=== PATIENT | male | born 1960 | race Caucasian/White ===

== ENCOUNTER → 2017-05-18 | Outpatient (CLI) | payer MEDICARE, MEDICAID ==
[~2017-05-18] VITALS: Ht 182.9 cm; Wt 132.4 kg
[~2017-05-18] MED LIST: ALFU10TA6 PO; ALPR1T PO; AMIT25TA9 PO; AMIT50TA3 PO; ASP81TEC PO; CA C1TAB26 PO; CATHETER FLUSH 10 ML SYR IV PRN; CYCL10TA9 PO; DARI7.5T8 PO; DEXL60CA PO; DILT240C PO; FENO145T2 PO; FESO8TAB PO; FURO40TA4 PO; GABA-488 PO; GLYB5TAB6 PO; HYDR1TAB86 PO; INSASP10V SQ; INSU100C7 SQ; INSU100I29 SQ; LANS30CA PO; LISI5TAB PO; LORA10CA PO; METF-380 PO; POTA10CA43 PO; REGADENOSON 0.4 MG/5 ML SYR (LEXISCAN) IV ONE; SIMV20TA3 PO; TIZA4TAB3 PO; TROS60CA2 PO; VENL75TA74 PO; VITA10007 PO
[2017-05-18 09:03] VITALS: BP 112/90
--- NOTE | 2017-05-19 08:07 | STRESS TEST ---
DATE OF SERVICE: 05/18/2017 PROCEDURE: Resting and post regadenoson technetium-99m Tetrofosmin SPECT CT imaging. ORDERING PHYSICIAN: Dr. Reynaga. PRIMARY PHYSICIAN: Dr. Pacheco. CLINICAL DIAGNOSIS: Coronary artery disease. DESCRIPTION: Baseline images were carried out after injection of 10.57 mCi of technetium-99m Tetrofosmin. This was followed by 0.4 mg regadenoson and 30.3 mCi of technetium-99m Tetrofosmin for stress imaging. The electrocardiogram showed sinus rhythm with sinus arrhythmia at baseline. The electrocardiogram did not change significantly with the regadenoson infusion. Overall, he tolerated the procedure well. Review of images at rest and following stress indicates a small predominantly transient basal inferior perfusion defect. Gated images show normal global left ventricular systolic function with normal regional wall motion. Left ventricular ejection fraction is calculated to be 56%. Left ventricular end diastolic volume is 78 mL. TID is absent (1). CONCLUSIONS: 1. This study is indicative of a small amount of basal inferior ischemia. 2. Normal regional wall motion. 3. Normal global left ventricular systolic function with a calculated ejection fraction of 56%. Job ID: [id number] DocumentID: [id number] Dictated Date: 05/18/2017 17:06:52 Reference Assistant Date: 05/19/2017 02:21:52 Dictated By: LISA REYNAGA MD, MA, FACP, FACC,
== END ==
LOC: CARD 07:16
PROVIDERS: ATTEND Internal Medicine Cardiovascular Disease
DX: I25.10 Atherosclerotic heart disease of native coronary artery without angina pectoris (principal); E11.9 Type 2 diabetes mellitus without complications; J43.8 Other emphysema; K76.0 Fatty (change of) liver, not elsewhere classified; E78.4 Other hyperlipidemia; I10 Essential (primary) hypertension; G47.33 Obstructive sleep apnea (adult) (pediatric)
CPT/HCPCS: 78452; 93017

== ENCOUNTER 2017-06-08 08:38 | Day surgery (SDC) | payer MEDICARE, MEDICAID ==
[2017-06-08] VITALS (9 sets, daily range): BP systolic 113–147; BP diastolic 69–92
[~2017-06-08] VITALS: Ht 188 cm; Wt 137.0 kg
[~2017-06-08 08:38] MED LIST changes: -CATHETER FLUSH 10 ML SYR IV PRN; -REGADENOSON 0.4 MG/5 ML SYR (LEXISCAN) IV ONE
[2017-06-08] MEDS ORDERED: HEParin 1000 UNIT/ML (10ML VIAL) FOR BOLUS ONE (08:53)
[2017-06-08] MEDS ORDERED: NS IV 1000 ML 3,000 ML ONE (08:53)
[2017-06-08] MEDS ORDERED: NS IV 1000 ML 1,000 ML IV SCH ×2 (09:15→11:55)
[2017-06-08 09:34] LABS: MEAN PLATELET VOLUME 10.9 FL (7.4-10.4); RED BLOOD COUNT 4.63 10^6/uL (4.35-5.85); RED CELL DISTRIBUTION WIDTH 13.5 % (10.0-14.5); WHITE BLOOD COUNT 8.5 10^3/uL (4.3-11.0)
[2017-06-08 09:43] LABS: INR 0.9 (0.8-1.4); PROTHROMBIN TIME PATIENT 12.7 SEC (12.2-14.7)
[2017-06-08 09:55] LABS: ALANINE AMINOTRANSFERASE 14 U/L (0-55); ALBUMIN 4.2 GM/DL (3.2-4.5); ANION GAP 10 MMOL/L (5-14); ASPARTATE AMINO TRANSFERASE 13 U/L (5-34); BILIRUBIN,TOTAL 0.5 MG/DL (0.1-1.0); BLOOD UREA NITROGEN 14 MG/DL (7-18); BUN/CREATININE RATIO 14; CALCIUM 8.8 MG/DL (8.5-10.1); CARBON DIOXIDE 24 MMOL/L (21-32); CHLORIDE 101 MMOL/L (98-107); CHOLESTEROL 142 MG/DL (< 200); CREATININE SERUM 1.02 MG/DL (0.60-1.30); DIRECT LDL 80 MG/DL (1-129); GFR ESTIMATED > 60; GLUCOSE 230 MG/DL (70-105); POTASSIUM 4.4 MMOL/L (3.6-5.0); SODIUM 135 MMOL/L (135-145); TOTAL PROTEIN 7.2 GM/DL (6.4-8.2); TRIGLYCERIDES 160 MG/DL (<150); VLDL CHOLESTEROL 32 MG/DL (5-40)
[2017-06-08] MEDS ORDERED: INFLUENZA TRIvalent 2017-2018 0.5 ML/45 MCG SYR IM ONE (10:00)
[2017-06-08] MEDS ORDERED: MIDAZOLAM 5 MG/5 ML (VERSED) VIAL ONE (10:20)
[2017-06-08] MEDS ORDERED: diphenhydrAMINE 50 MG/ML INJ (BENADRYL) ONE (10:21)
[2017-06-08] MEDS ORDERED: fentaNYL INJECTION 100 MCG/2 ML AMP ONE (10:21)
--- NOTE | 2017-06-08 11:01 | Cardiac Procedure Note-CS/ASA ---
Pre-Procedure Note Pre-Op Procedure Note H&P Reviewed The H&P was reviewed, patient examined and no changes noted. Date H&P Reviewed: Jun 08, 2017 Time H&P Reviewed: 11: Conscious Sedation Pre-Proced Time Reviewed: 11: ASA Class: 2 Airway Mallampati Classification: ([place] appropriate class) I. II. III, IV Lungs Heart ASA score ASA 1: a normal healthy patient ASA 2: a patient with a mild systemic disease (mid diabetes, controlled hypertension, obesity ASA 3: a patient with a severe systemic disease that limits activity (angina , COPD, prior Myocardial infarction) ASA 4: a patient with an incapacitating disease that is a constant threat to life (CHF, renal failure) ASA 5: a moribund patient not expected to survive 24 hrs. (ruptured aneurysm) ASA 6: a declared brain patient whose organs are being harvested. For emergent operations, add the letter E after the classification Grade 3 Sedation Plan: Analgesia, Amnesia, Plan communicated to team members, Discussed options with patient/fam, Discussed risks with patient/fam Note The patient is an appropriate candidate to undergo the planned procedure, sedation, and anesthesia. The patient immediately re-assessed prior to indication. LISA ANGUIANO MD FACP FAC CCDS Jun 08, 2017 11:01
--- NOTE | 2017-06-08 11:57 | Discharge Inst-Post CATH ---
Discharge Inst-CATH Post Cardiac Cath D/C Inst Follow Up/Plan F/u with Dr Reynaga in 2-3 weeks CARDIAC CATH DISCHARGE INSTRUCTIONS *Hold Metformin for 48 hours post heart cath. ACTIVITY * Go Home directly and rest. * Limit activity of the leg (or wrist if it was used) for 7 days including aerobics, swimming, jogging, bicycling, etc. * Restrict stair-climbing for 7 days if possible, if not, climb up with your non -cath leg, then bring together on the same step. * Avoid lifting, pushing, pulling or excessive movement of the affected extremity for 7 days. * Customary sexual activity may be resumed after 2 days-use caution not to use a position that strains or causes pain to the affected extremity. * No driving for 24 hours. * NO SMOKING. * Avoid straining for bowel movements for 7 days. * Gentle walking on level ground is allowed. * Returning to work will depend on the type of procedure and the results. Your doctor will discuss this with you. CALL YOUR DOCTOR FOR ANY OF THE FOLLOWING: *If bleeding from the puncture site occurs- Apply gentle pressure to site with clean cloth and call your doctor or EMS. * If a knot or lump forms under the skin, increases in size, or causes pain. * If bruising appears to be worsening or moving further down your leg instead of disappearing. * Temperature above 101 F. CARE OF YOUR GROIN INCISION; * Bruising or purple discoloration of the skin near the puncture site is common. * You may shower only, no bathtub bathing for 5 days. Be careful to avoid slipping as your leg may feel stiff. * If a closure device was used on your femoral artery, please see the attached guide regarding care of the device and your leg. * REMOVE the dressing from your groin the next day after your procedure in the shower. CARE OF YOUR WRIST INCISION; * Bruising or purple discoloration of the skin near the puncture site is common. * You may shower. * DO NOT submerge wrist. * Remove dressing in 24 hours. LISA REYNAGA MD [facility] CCDS Jun 08, 2017 11:57
--- NOTE | 2017-06-08 11:58 | Discharge Inst-Cardiology ---
Discharge Inst-Cardiac Discharge Medications Continued Medications: Alfuzosin Hcl (Uroxatral) 10 Mg Tab.sr.24h 10 MG PO DAILY Alprazolam (Xanax) 1 Mg Tablet 1 MG PO Q6H PRN Amitriptyline HCl (Amitriptyline HCl) 50 Mg Tablet 50 MG PO HS, TAB Aspirin (Aspirin Ec 81 Mg) 81 Mg Tabec 81 MG PO DAILY Ca Cmb No.1/Vit D3/B-6/Fa/B12 (Vitamin D3 1,000 Unit Tablet) 1 Each Tablet 1000 UNITS PO DAILY Dexlansoprazole (Dexilant) 60 Mg Cap.dr.mp 60 MG PO DAILY@1700 Diltiazem Hcl (Diltiazem Cd 240 Mg (Once Daily)) 240 Mg Cap.sr.24h 240 MG PO DAILY Fesoterodine Fumarate (Toviaz) 8 Mg Tab.er.24h 8 MG PO DAILY@1200, TAB Furosemide (Furosemide) 40 Mg Tablet 60 MG PO DAILY take 1 1/2 of 40mg tab Gabapentin (Gabapentin) 300 Mg Capsule 300 MG PO HS, CAP Glyburide (Glyburide) 5 Mg Tablet 5 MG PO BID take 5mg in AM 2.5 MG (1/2 TAB) EVERY PM Hydrocodone Bit/Acetaminophen (Hydrocodon-Acetaminophn 10-500) 1 Each Tablet 1 TAB PO Q6H PRN Insulin Detemir (Levemir Flextouch) 100 Unit/1 Ml Insuln.pen 40 UNIT SQ HS, EA Insulin Human Lispro (Humalog) 100 U/Ml Vial 20-30 UNITS SQ TIDAC Lisinopril (Zestril) 5 Mg Tablet 5 MG PO DAILY Loratadine (Claritin) 10 Mg Capsule 10 MG PO DAILY Potassium Chloride (Potassium Chloride 10 Meq Cap) 10 Meq Capsule.sa 10 MEQ PO DAILY Simvastatin (Simvastatin) 20 Mg Tablet 20 MG PO DAILY, TAB Venlafaxine Hcl (Venlafaxine Hcl Er) 75 Mg Tab.osm.24 75 MG PO DAILY Vitamin E (Natural Vitamin E) 1,000 Unit Capsule 1000 UNIT PO DAILY Discontinued Medications: Metformin Hcl (Metformin 1000 Mg) 1,000 Mg Tablet 1000 MG PO TID take 1/2 at noon, and 1 morning and hs Patient Instructions Patient Instructions: Hold METFORMIN until the evening of 06/10/17; then resume per previous home dose Orders-Post D/C & Referrals Pneu Vac Indicated: Yes LISA ANGUIANO MD FACP FACC CCDS Jun 08, 2017 11:58
[2017-06-08] MEDS ORDERED: PATIENT MAY USE OWN MEDS, ALL PO SCH (12:00)
--- NOTE | 2017-06-08 22:34 | CARDIAC CATHETERIZATION ---
DATE OF SERVICE: 06/08/2017 The patient is a 56-year-old gentleman who has coronary artery disease risk factors and who recently had a myocardial perfusion imaging study, which was abnormal and indicative of basal inferior ischemia. Cardiac catheterization was carried out today after having obtained an informed consent. DESCRIPTION OF PROCEDURE: He was brought to the cardiac catheterization laboratory in a fasting state. Right groin was prepared and draped in the usual sterile fashion. A 1% lidocaine was used for local anesthesia. Modified Seldinger technique was used to advance a 5-Divehi sheath in the right femoral artery, 5-Divehi JL4 catheter for left coronary angiography, 5-Divehi JR4 catheter was used for right coronary angiography, a 5-Divehi pigtail catheter was used for left heart catheterization and left ventricular angiography. The pigtail catheter was pulled back to the aortic arch and aortic arch angiography was performed. Angiography of the right femoral artery had been carried out through the sheath at the time of insertion of the sheath. At the end of the procedure, Mynx was used to achieve hemostasis following sheath removal. HEMODYNAMICS: Left ventricular end-diastolic pressure following coronary angiography was 16 mmHg. There was no significant pressure gradient on pullback across the aortic valve. Ascending aortic pressure was 115/75, with a mean of 95 mmHg. LEFT VENTRICULAR ANGIOGRAPHY: Left ventricular angiography was carried out in the right anterior oblique projection. Global left ventricular systolic function normal. No regional wall abnormalities are seen. Left ventricular ejection fraction is 60% to 65%. There does not appear to be any significant mitral regurgitation. CORONARY ANGIOGRAPHY: Left main coronary artery, left main anterior descending artery, left circumflex artery, right coronary artery are all angiographically free of any significant obstructive disease. AORTIC ARCH ANGIOGRAPHY: Aortic arch angiography did not indicate any significant thoracic aortic aneurysm or dissection, to the extent visualized. The neck arteries, including the carotid arteries, to the extent visualized, do not seem to have any obstructive disease. CONCLUSIONS: 1. No evidence of any significant coronary artery disease. 2. Normal global left ventricular systolic function with an ejection fraction of 60% to 65%. 3. Mild elevation of left ventricular end-diastolic pressure. 4. No significant mitral regurgitation. DISCUSSION AND RECOMMENDATIONS: Based on the results of the study, it appears appropriate to continue a conservative approach and focus on risk factor modification. Outpatient followup is advised. Job ID: [id number] DocumentID: [id number] Dictated Date: 06/08/2017 11:46:10 Deputy Sheriff Lieutenant Date: 06/08/2017 17:04:12 Dictated By: LISA ANGUIANO MD, MA, FACP, FACC,
== END 2017-06-08 14:59 | disposition home or self-care (01) ==
LOC: CATH 08:38 → SURG 12:01 → CATH 14:59
PROVIDERS: ATTEND Nurse Practitioner Family
DX: R06.02 Shortness of breath (principal); R94.39 Abnormal result of other cardiovascular function study; I25.10 Atherosclerotic heart disease of native coronary artery without angina pectoris; J44.9 Chronic obstructive pulmonary disease, unspecified; E11.9 Type 2 diabetes mellitus without complications; E78.5 Hyperlipidemia, unspecified; K76.0 Fatty (change of) liver, not elsewhere classified; K21.9 Gastro-esophageal reflux disease without esophagitis; E66.2 Morbid (severe) obesity with alveolar hypoventilation; Z68.38 Body mass index [BMI] 38.0-38.9, adult; Z93.0 Tracheostomy status; Z99.81 Dependence on supplemental oxygen; Z79.84 Long term (current) use of oral hypoglycemic drugs; Z79.82 Long term (current) use of aspirin; Z79.899 Other long term (current) drug therapy
CPT/HCPCS: 36221; 36415; 80053; 80061; 85027; 85610; 85730; 87081; 93458

== ENCOUNTER → 2019-04-13 | Outpatient (CLI) | payer MEDICARE, OTHER ==
[~2019-04-13] MED LIST changes: +HOLD METFORMIN - RECEIVED CONTRAST 20 ML VIAL IV SCH; +IOHEXOL 350 MG/ML 100 ML (OMNIPAQUE 350) VIAL IV ONE; +NS 100 ML (IVPB) BAG IV ONE; -TIZA4TAB3 PO; +TIZA4TAB4 PO
[2019-04-13 10:55] LABS: BUN/CREATININE RATIO 16; CALCIUM 9.2 MG/DL (8.5-10.1); CARBON DIOXIDE 25 MMOL/L (21-32); CHLORIDE 105 MMOL/L (98-107); CREATININE SERUM 1.21 MG/DL (0.60-1.30); GFR ESTIMATED > 60; GLUCOSE 131 MG/DL (70-105); POTASSIUM 4.7 MMOL/L (3.6-5.0); SODIUM 138 MMOL/L (135-145)
--- NOTE | 2019-04-13 12:12 | Diagnostic Imaging Report ---
PROCEDURE: CT angiography of the chest with contrast. TECHNIQUE: Multiple contiguous axial images were obtained through the chest after uneventful bolus administration of intravenous contrast. 3D reconstructed CTA MIP acquisitions were also performed. Auto Exposure Controls were utilized during the CT exam to meet ALARA standards for radiation dose reduction. INDICATION: Enlargement of the aortic root. COMPARISON: No prior studies are available for comparison. FINDINGS: Tracheostomy tube has tip above the elvia. Aortic root measured in the coronal plane is 3.7 cm. Sinotubular junction is approximately 3.6 cm. The ascending thoracic aorta measured in the axial plane is 4.1 cm AP. The transverse and descending thoracic aorta are normal in caliber. No definite dissection is identified. No pericardial or pleural fluid is identified. No axillary, hilar, or mediastinal lymphadenopathy is detected. No pulmonary infiltrates, nodules, or masses are detected. The upper abdomen is unremarkable. IMPRESSION: Essentially unremarkable CT angiogram of the chest. No definite thoracic aortic aneurysm is identified. Dictated by: Dictated on workstation # [id number]
== END ==
LOC: RAD 09:51
PROVIDERS: ATTEND Nurse Practitioner Family
DX: I77.89 Other specified disorders of arteries and arterioles (principal); Z98.890 Other specified postprocedural states
CPT/HCPCS: 36415; 71275; 80048

== ENCOUNTER → 2020-04-23 | Outpatient (CLI) | payer MEDICARE, MEDICAID ==
[~2020-04-23] VITALS: Ht 182 cm; Wt 130.0 kg
[~2020-04-23] MED LIST changes: +CATHETER FLUSH 10 ML SYR IV PRN; -HOLD METFORMIN - RECEIVED CONTRAST 20 ML VIAL IV SCH; -IOHEXOL 350 MG/ML 100 ML (OMNIPAQUE 350) VIAL IV ONE; -NS 100 ML (IVPB) BAG IV ONE; +REGADENOSON 0.4 MG/5 ML SYR (LEXISCAN) IV ONE; +SIMV20TA26 PO; -SIMV20TA3 PO
[2020-04-23 08:50] VITALS: BP 137/83
--- NOTE | 2020-04-23 13:56 | STRESS TEST ---
DATE OF SERVICE: 04/23/2020 RESTING AND POST REGADENOSON TECHNETIUM-99M TETROFOSMIN SPECT CT IMAGING ORDERING PHYSICIAN: Dr. Reynaga. PRIMARY PHYSICIAN: Dr. Pacheco. CLINICAL DIAGNOSES: Coronary artery disease, COPD, hyperlipidemia, shortness of breath. Baseline images were carried out after injection of 10.31 mCi of technetium-99m Tetrofosmin. This was followed by 0.4 mg regadenoson and 28.7 mCi of technetium-99m Tetrofosmin for stress imaging. The electrocardiogram showed sinus rhythm at baseline. The electrocardiogram did not change significantly with regadenoson infusion. The patient tolerated the procedure well. Review of images at rest and following stress does not indicate any significant perfusion defects consistent with significant myocardial ischemia or infarction. Gated images showed normal global left ventricular systolic function with normal regional wall motion. Left ventricular ejection fraction is calculated to be 63%. Left ventricular end diastolic volume is 80 mL. TID is absent (1.03). CONCLUSIONS: 1. No evidence of significant myocardial ischemia or infarction on this study. 2. Normal regional wall motion. 3. Normal global left ventricular systolic function with a calculated ejection fraction of 63%. Job ID: [id number] DocumentID: [id number] Dictated Date: 04/23/2020 13:39:30 Atmospheric Technician Date: 04/23/2020 13:55:41 Dictated By: LISA REYNAGA MD, MA, FACP, FACC,
== END ==
LOC: CARD 07:30
PROVIDERS: ATTEND Internal Medicine Cardiovascular Disease
DX: I25.10 Atherosclerotic heart disease of native coronary artery without angina pectoris (principal); I65.23 Occlusion and stenosis of bilateral carotid arteries; J44.9 Chronic obstructive pulmonary disease, unspecified; E78.5 Hyperlipidemia, unspecified; I10 Essential (primary) hypertension; Z93.0 Tracheostomy status
CPT/HCPCS: 78452; 93017; A9502